=== PATIENT | male | born 1960 | race Caucasian/White ===

== ENCOUNTER 2022-02-05 05:13 | Emergency (ER) | payer OTHER, SELFPAY ==
--- NOTE | ~2022-02-05 | CT_ITS ---
EXAMINATION: CT ABDOMEN AND PELVIS WITHOUT CONTRAST CLINICAL INFORMATION: Rt inguinal pain COMPARISON: None TECHNIQUE: Multidetector volumetric imaging was performed from the superior aspect of the liver through the pubic symphysis. Sagittal and coronal reformatted images were obtained on the technologist's workstation. This CT examination was performed using dose optimization techniques as appropriate, variously including the following: *Automated exposure control *Adjustment of mA and/or kV according to patient size (this includes techniques or standardized protocols for targeted exams where dose is matched to indication/reason for exam; i.e. extremities or head) *Use of iterative reconstruction technique DLP: 646 mGy-cm FINDINGS: LUNG BASES: Mild dependent atelectasis. LIVER, GALLBLADDER, AND BILIARY TREE: The liver is normal in size, shape, and attenuation. No focal hepatic lesion or biliary ductal dilatation is present. The gallbladder is unremarkable with no evidence of radiopaque gallstones, gallbladder wall thickening, or obvious pericholecystic inflammatory changes. PANCREAS: Unremarkable. SPLEEN: Unremarkable. ADRENAL GLANDS: Unremarkable. KIDNEYS AND URETERS: The kidneys are normal in size, shape, and attenuation. No hydronephrosis, hydroureter, or calculi seen. No perinephric stranding. Small subcentimeter focus of cortical hypoattenuation in the left kidney is too small to characterize, though statistically favored to correspond to a simple cyst. No recommended imaging follow-up. BLADDER: Decompressed and unremarkable. GASTROINTESTINAL TRACT: Stomach, small bowel, and colon are normal in caliber. No bowel wall thickening or surrounding inflammatory changes. Appendix is normal. No intraperitoneal free fluid or free air. ABDOMINAL WALL: There is a small direct, fat-containing right inguinal hernia. No bowel involvement. A smaller direct, fat-containing left inguinal hernia is noted. No additional hernias. LYMPH NODES: Normal. VASCULAR: Atherosclerotic calcifications are present in the abdominal aorta and iliac arteries. No aneurysmal dilatation. PELVIC VISCERA: The prostate and seminal vesicles are unremarkable. OSSEOUS STRUCTURES: Moderate multilevel degenerative spondylosis in the lumbar spine. No acute fracture or malalignment. 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 CT/CT abdomen pelvis wo IV con IMPRESSION: 1. Small direct fat-containing inguinal hernias bilaterally, right side larger than left. No bowel involvement. 2. No acute intra-abdominal or intrapelvic abnormalities. Fleischner guidelines were followed.
--- NOTE | ~2022-02-05 | XR_ITS ---
EXAMINATION: XR HIP, RIGHT CLINICAL INFORMATION: r groin pain COMPARISON: None TECHNIQUE: AP and frog-leg lateral views of the right hip. AP view of the pelvis. FINDINGS: Chronic osseous fragment at the lateral margin of the acetabulum likely correspond to an os acetabuli. Right hip joint otherwise appears relatively well-preserved. No acute fracture or malalignment. Bone mineralization is normal. Left hip joint is normal. Ankylosis is suspected at the SI joints. There is degenerative spondylosis in the lower lumbar spine. No acute soft tissue findings. XR/XR hip RT w PEL1V IMPRESSION: No acute osseous findings. Degenerative spondylosis in the lower lumbar spine. 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 Right hip joint otherwise appears relatively well-preserved.
[2022-02-05 05:16] VITALS: BP 138/83; PULSE 82; RESP 20; TEMP 36.2; O2SAT 97; BMI 28.0
[2022-02-05 06:00] VITALS: BP 131/82; PULSE 72; RESP 16; TEMP 36.7; O2SAT 97
[2022-02-05 06:24] LABS: MANUAL DIFF FLAG NO
[2022-02-05 06:25] LABS: Basophils Percent Auto 0.4 % (0-2); Eosinophils Absolute Auto 0.1 X10*3/uL (0.0-0.4); Eosinophils Percent Auto 1.1 % (0-4); Hematocrit 45.7 % (42.0-52.0); Hemoglobin 15.6 g/dl (14.0-18.0); Imm Gran Abs Auto 0.02 X10*3/uL (0.00-0.03); Imm Gran Pct Auto 0.2 % (0.0-0.4); Lymphocytes Absolute Auto 2.1 X10*3/uL (1.2-4.9); Mean Corpuscular HGB Conc 34.1 g/dl (31.0-36.0); Mean Corpuscular Volume 96.6 fL (80.0-98.0); Mean Platelet Volume 8.9 fL (9.4-12.4); Monocytes Absolute Auto 0.7 X10*3/uL (0.1-1.2); Monocytes Percent Auto 7.2 % (2-11); Neutrophils Absolute Auto 6.6 x10*3/uL (2.0-8.3); Neutrophils Percent Auto 69.1 % (45-73); Platelet Count 253 X10*3/uL (160-400); Red Blood Count 4.73 X10*6/uL (4.60-5.80); Red Cell Distribution Width 11.9 % (11.0-16.0); White Blood Count 9.6 X10*3/uL (4.8-10.8)
--- NOTE | 2022-02-05 06:32 | ED_ITS ---
HPI - Abdominal Pain General Chief Complaint: Extremity Injury, Lower Stated Complaint: ruptured groin? work inj Time Seen by Provider: 02/05/22 05:45 Source: patient Mode of arrival: ambulatory History of Present Illness HPI narrative: 61-year-old male who was at work when he needed to lift the front trailer of a piece of machinery that got stuck and then felt a sharp pain in the right ?groin? area and persistent pain within noted swelling. Patient currently states that it feels ?weird and painful? and denies any prior hernia. Related Data Allergies Allergy/AdvReac Type Severity Reaction Status Date / Time No Known Allergies Allergy Verified 02/05/22 05:20 [No Known Allergies*] Review of Systems Review of Systems Pertinent positives and negatives as stated in HPI 10 point review of systems is otherwise negative. PMFSH Past Medical History Source: nursing notes reviewed Social History Social History Alcohol intake: current Alcohol intake frequency: a few times a week Alcohol type: beer Smoked in Last 30 Days: No Use of substances other than those prescribed or required for medical reasons: No Advance Directives: No Physical Exam ED Vital Signs: Vital Signs - 24 hr 02/05/22 05:16 Temperature 97.2 F Pulse Rate 82 Respiratory Rate 20 Blood Pressure 138/83 Pulse Oximetry 97 Oxygen Delivery Method Room Air BMI result Body Mass Index 28.0 VITAL SIGNS: Reviewed. GENERAL: Well developed, well nourished, in no acute distress. HEAD: Normocephalic/atraumatic EYES: PERRLA, EOMI EARS: Ext canals without abnormality OROPHARYNX: no oral lesions noted, posterior pharynx clear LUNGS: Normal breath sounds. No adventitious sounds or accessory muscle use. SpO2<97> CARDIOVASCULAR: Regular rate and rhythm without noted murmurs ABDOMEN: Soft, non-tender, non-distended with bowel sounds, no swelling at the right inguinal area INGUINAL EXAM: (winter intern-Jovanny) hernia evaluation demonstrates a right indirect hernia, appears to be reducible but remains TTP MUSCULOSKELETAL: No tenderness, deformities, or effusions noted on gross inspection. EXTREMITIES: No cyanosis, clubbing or edema. SKIN: Inspection of the skin reveals no rashes NEUROLOGIC: Alert and oriented x 4. Strength and sensation to light touch were grossly intact x 4. Course Course Course Narrative: 61-year-old male with history and clinical presentation consistent with new onset right inguinal hernia. There are no obstructive symptoms but patient still is expressing pain on palpation. Basic labs and CT scan were performed. Signed out Dr Crook. MDM - Abdominal Pain Lab Data Result diagrams: 02/05/22 06:19 02/05/22 06:19 Labs: Lab Results 02/05/22 Range/Units 06:19 WBC 9.6 (4.8-10.8) X10*3/uL RBC 4.73 (4.60-5.80) X10*6/uL Hgb 15.6 (14.0-18.0) g/dl Hct 45.7 (42.0-52.0) % MCV 96.6 (80.0-98.0) fL MCH 33.0 (27.0-33.0) pg MCHC 34.1 (31.0-36.0) g/dl RDW 11.9 (11.0-16.0) % Plt Count 253 (160-400) X10*3/uL MPV 8.9 L (9.4-12.4) fL Immature Gran % (Auto) 0.2 (0.0-0.4) % Neut % (Auto) 69.1 (45-73) % Lymph % (Auto) 22.0 (20-40) % [place] % (Auto) 7.2 (2-11) % Eos % (Auto) 1.1 (0-4) % Baso % (Auto) 0.4 (0-2) % Lymph # (Auto) 2.1 (1.2-4.9) X10*3/uL [place] # (Auto) 0.7 (0.1-1.2) X10*3/uL Eos # (Auto) 0.1 (0.0-0.4) X10*3/uL Baso # (Auto) 0.0 (0.0-0.2) X10*3/uL Abs Immat Gran (auto) 0.02 (0.00-0.03) X10*3/uL Absolute Neuts (auto) 6.6 (2.0-8.3) x10*3/uL Absolute Nucleated RBC 0.000 (0.0-0.012) X10*3/uL Nucleated RBC % (auto) 0.0 (0.0-0.2) /100WBC Discharge Plan Discharge Clinical Impression: Indirect inguinal hernia Patient Disposition: Still a Patient Instructions: Inguinal Hernia (ED) Referrals: Donis Espinoza MD [Physician] -
[2022-02-05 06:47] LABS: Alanine Aminotransferase 19 U/L (0-40); Albumin Level 4.1 g/dL (3.5-5.0); Alkaline Phosphatase 77 U/L (39-117); Anion Gap 14 (12-20); Aspartate Amino Transferase 19 U/L (5-37); Bilirubin Total 0.7 mg/dL (0.0-1.0); Blood Urea Nitrogen 14 mg/dL (9-16); Calcium 9.1 mg/dL (8.4-10.2); Carbon Dioxide 21 mmol/L (22-29); Chloride 108 mmol/L (96-108); Creatinine Clr Calc Pharmacy 102.8; Estimated Glomerular Filt Rate > 60; Glucose Random 104 mg/dL (60-115); Potassium 4.2 mmol/L (3.3-5.1); Sodium 139 mmol/L (135-145); Total Protein 6.8 g/dL (6.5-8.0)
[2022-02-05 08:20] VITALS: BP 129/75; PULSE 71; RESP 14; TEMP 36.6; O2SAT 94
--- NOTE | 2022-02-05 08:41 | PC.NURSE ---
Pt resting at this time, awaiting disposition
== END 2022-02-05 09:55 | disposition home or self-care (01) ==
PROVIDERS: Student in an Organized Health Care Education/Training Program; Emergency Provider Emergency Medicine Emergency Medical Services; PCP Internal Medicine
DX: S39.91XA Unspecified injury of abdomen, initial encounter (principal); K40.90 Unilateral inguinal hernia, without obstruction or gangrene, not specified as recurrent; R10.9 Unspecified abdominal pain; M25.551 Pain in right hip; X58.XXXA Exposure to other specified factors, initial encounter; Y93.9 Activity, unspecified; Y92.9 Unspecified place or not applicable; Y99.0 Civilian activity done for income or pay; Z79.899 Other long term (current) drug therapy
CPT/HCPCS: 36415; 73502; 74176; 80053; 85025; 99284

== ENCOUNTER → 2022-02-11 08:58 | Outpatient (BNVA) | payer OTHER, SELFPAY | PROVIDERS: PCP Internal Medicine; Visit Provider Surgery | DX: K40.10 Bilateral inguinal hernia, with gangrene, not specified as recurrent (principal); F17.210 Nicotine dependence, cigarettes, uncomplicated | CPT/HCPCS: 99202 ==

== ENCOUNTER 2022-10-10 14:18 | Emergency (ER) | payer OTHER, SELFPAY ==
[2022-10-10 14:45] VITALS: BP 149/85; PULSE 73; RESP 16; TEMP 36.4; O2SAT 96; BMI 28.3
--- NOTE | 2022-10-10 15:54 | ED_ITS ---
HPI - General Adult General Chief complaint: General Medical Stated complaint: r eye inj bleeding inside Time Seen by Provider: 10/10/22 14:35 Source: patient Mode of arrival: ambulatory Limitations: no limitations History of Present Illness HPI narrative: Patient is a 61-year-old male presenting to the emergency department with injury to right eye prior to arrival. States that he was weed whacking when he feels he was hit in the eye with a rock. States he had significant bleeding from right eye. Also complains of right eye pain. Denies any blurred vision, double vision or other visual changes. complaint: right eye injury Onset (ago): minute(s) Location: face Radiation: non-radiation Severity: moderate Quality: aching Pain Consistency: constant Relieving factors: none Exacerbating factors: none Associated symptoms: denies other symptoms Treatments prior to arrival: none Related Data Previous Rx's Medication Instructions Recorded erythromycin 5 mg/gram (0.5 %) eye 1 appl ophthalmic (eye) QID 5 days 10/10/22 ointment #3.5 grams Allergies Allergy/AdvReac Type Severity Reaction Status Date / Time No Known Allergies Allergy Verified 02/11/22 09:35 [No Known Allergies*] Review of Systems Review of Systems: As per HPI. Yes all other systems are reviewed and are negative Constitutional: Constitutional: Reports as per HPI [facility] Social History Social History Alcohol intake: current Alcohol intake frequency: 0-2 drinks per day Alcohol type: beer Smoked in Last 30 Days: Yes Use of substances other than those prescribed or required for medical reasons: No Advance Directives: No Advance Directives Information Provided: No Physical Exam ED Vital Signs: Vital Signs - 24 hr 10/10/22 14:45 Temperature 97.5 F Pulse Rate 73 Respiratory Rate 16 Blood Pressure 149/85 H Pulse Oximetry 96 Oxygen Delivery Method Room Air BMI result Body Mass Index 28.3 Vital signs have been reviewed and appear to be correct. Blood pressure elevated. Heart rate normal. Respiratory rate normal. Temperature normal. Oxygen saturation normal. Const General: cooperative, healthy appearing and no acute distress Orientation/consciousness: oriented to person, oriented to place, oriented to time and patient oriented x3 Limitations: no limitations HENMT Head: Yes normocephalic and Yes atraumatic Ears: external ears normal General nose exam: Normal external nose present Face and sinus: Yes face symmetric Mouth: oropharynx normal and moist mucous membranes Throat: Yes uvula midline Eyes Alignment and Position: alignment normal and position normal Periorbital: periorbital findings normal Eyelids: Yes eyelids normal Conjunctivae: conjunctival abnormal right (no active bleeding during assessment) subconjunctival hemorrhage Sclerae: scleral abnormal right Pupils: Equal, round and reactive pupils present EOM: EOMs intact bilaterally Direct Ophthalmoscopy: no photophobia Neck Neck: Yes normal visual inspection and Yes supple Resp Effort & Inspection: normal respiratory effort and able to speak in complete sentences Auscultation: clear to auscultation bilaterally Cardio Rate: regular rate Rhythm: regular rhythm Heart sounds: S1 normal heart sound present and S2 normal heart sound present GI Palpation (GI): Soft to palpation and nontender Auscultation: normoactive bowel sounds General: Yes no CVA tenderness Back/Spine/Pelvis Back: no CVA tenderness Skin General skin exam: elasticity normal and turgor normal Neuro General: oriented to person, oriented to place, oriented to time, patient oriented x3, moves all extremities, no focal motor deficits and CN's II-XI intact bilaterally Cranial nerves: Yes Equal, round and reactive pupils present Cognition (Neuro): normal cognition Extrem General: Yes full ROM, Yes no pedal edema and Yes no calf tenderness Psych Mental Status: mental status grossly normal Affect: normal affect Thought process: Normal thought process present Medications Administered Discontinued Medications Generic Name Dose Route Start Last Admin Trade Name Freq PRN Reason Stop Dose Admin Fluorescein Sodium 1 strip 10/10/22 15:53 10/10/22 16:16 Fluorescein Sodium Strip EYE-RIGHT 10/10/22 15:54 1 strip ONCE ONE Administration Medical Decision Making Medical Decision Making [facility] Narrative: Patient is a 61-year-old male presenting to the emergency department with injury to right eye prior to arrival. On exam patient is awake, A+Ox3, VS WNL, afebrile, normal neurological exam without focal deficits, PERRL, EOMs intact, visual acuity WNL, IOPs 10 left eye, 11 right eye, positive 1mm conjunctival abrasion at 0900 under fluorescein stain on Mayo lamp exam. No hyphema. Given reported symptoms and physical exam findings, initial differential includes concern for corneal abrasion, conjunctival abrasion, subconjunctival hemorrhage, globe rupture, retrobulbar hematoma. No evidence of globe rupture or retrobulbar hematorma. Feel patient is stable for discharge home with ophthalmology follow-up. Will prescribe erythromycin ointment. Instructed patient to avoid touching eyes. Instructed patient to keep eye closed and apply cool compresses, no strenuous activity until follow-up with Ophthalmology. Avoid bending forward Instructed patient to avoid further yard work until area has healed. Wear sunglasses when outside. Return precautions discussed at bedside. Instructed patient to follow-up with PCP. Will refer to Dr. Kemp. Differential Diagnosis Differential Diagnoses: The differential diagnosis associated with the presentation includes As per [facility] Admission/Observation Consideration of admission/observation: Escalation of care including admission/observation considered Considered given concern for globe rupture Independent Historian Clinical information obtained from an independent historian. History obtained from or confirmed by: Spouse External Record Review External record reviewed: Inpatient record, Office record and Outpatient record Prescription Management I considered prescription management with: Antibiotic Discharge Plan Discharge Clinical Impression: Conjunctival abrasion, Subconjunctival hemorrhage Patient Disposition: Home, Self-Care Instructions: Subconjunctival Hemorrhage (ED), Corneal Abrasion (DC) Additional Instructions: You are evaluated in the emergency department today for an injury to it your eye. It is important that you follow-up with the emr implementation specialist, Dr. Kemp as soon as possible. Failure to follow up with the emr implementation specialist could result in permanent vision loss. Avoid touching your eyes. Keep eye closed and apply cool compresses for the remainder of the day today, no strenuous activity until follow-up with Ophthalmology. Avoid bending forward Avoid further yard work until area has healed. Wear sunglasses when outside. Return to the emergency department with vision changes, worsening pain, ongoing bleeding, or any other concerning symptoms. Prescriptions: New erythromycin 5 mg/gram (0.5 %) ointment 1 appl ophthalmic (eye) QID 5 Days Qty: 3.5 0RF Rx Instructions: Right eye
[2022-10-10] MEDS: Fluorescein Sodium STRIP 1 STRIP EYE-RIGHT (16:16)
== END 2022-10-10 16:40 | disposition home or self-care (01) ==
PROVIDERS: Emergency Provider Emergency Medicine; PCP Internal Medicine
DX: S05.01XA Injury of conjunctiva and corneal abrasion without foreign body, right eye, initial encounter (principal); W20.8XXA Other cause of strike by thrown, projected or falling object, initial encounter; H11.31 Conjunctival hemorrhage, right eye; H57.11 Ocular pain, right eye; Y93.H9 Activity, other involving exterior property and land maintenance, building and construction; Y92.017 Garden or yard in single-family (private) house as the place of occurrence of the external cause; Y99.9 Unspecified external cause status
CPT/HCPCS: 99283; 99284